=== PATIENT | male | born 1990 | race Caucasian/White ===

== ENCOUNTER 2022-05-05 12:18 | Emergency (ER) | payer SELFPAY ==
--- NOTE | ~2022-05-05 | XR_ITS ---
XR forearm LT 2V DATE: 05/05/2022 12:57 INDICATION: Lateral forearm laceration. Evaluate for foreign body TECHNIQUE: AP and lateral views COMPARISON: None FINDINGS: No fracture or dislocation, periosteal reaction or bone destruction or radiopaque soft tiss ue foreign body. No subcutaneous emphysema. IMPRESSION: Negative Reviewed, dictated and finalized at location A. IMPRESSION: Negative
[2022-05-05 12:25] VITALS: BP 167/111; PULSE 80; RESP 16; TEMP 36.8; O2SAT 100
[2022-05-05] MEDS: TETANUS,DIPHTHERIA,AC PERTUSSIS ADULT (0.5 ML) BOOSTRIX IM (12:50)
--- NOTE | 2022-05-05 13:50 | ED.WOUNDLAC ---
HPI - Wound/Laceration General Chief Complaint: Wound/Laceration Stated Complaint: cut by ceramic tile Time Seen by Provider: 05/05/22 12:32 History of Present Illness HPI narrative: Patient is a 31-year-old male who presents ER with laceration to left forearm. He was working with some tile when it popped up and cut his arm. Initially had some numbness in his left pinky that has resolved. Normal range of motion. No fevers or chills or sweats. No additional injury. Last tetanus shot was 11 years ago. Related Data Allergies Allergy/AdvReac Type Severity Reaction Status Date / Time No Known Allergies Allergy Verified 05/05/22 12:23 Review of Systems Musculoskeletal: Musculoskeletal: Denies arthralgias, Denies joint swelling and Denies muscle cramps Integumentary/Breasts: Skin/Breast: Denies erythema and Denies rash Comments: forearm laceration Neurologic: Denies focal weakness and Reports numbness PMFSH Past Medical History Medical History (Updated 05/05/22 @ 13:54 by Trae Rodriguez MD) Healthy adult male Surgical History Surgical History (Updated 05/05/22 @ 13:53 by Trae Rodriguez MD) History of surgery on arm Exam Narrative: GENERAL: Well-appearing, well-nourished, and in no acute distress. HEAD: Normocephalic, atraumatic. HEART: Regular rate and rhythm. Normal peripheral pulses. EXTREMITIES: Normal range of motion. No edema. Left hand and arm neurovascular intact. SKIN: Warm, dry, no rash. Left forearm with 1.5 cm superficial laceration without involvement of muscle. NEURO: No focal deficits. Alert and oriented x3. PSYCH: Normal mood and affect. Course Course Emergency Course: Laceration repaired. Tetanus updated. Discharge home. Vital Signs Vital signs: Vital Signs Temperature 98.3 F 05/05/22 12:25 Pulse Rate 80 05/05/22 12:25 Respiratory Rate 16 05/05/22 12:25 Blood Pressure 167/111 H 05/05/22 12:25 Pulse Oximetry 100 05/05/22 12:25 Oxygen Delivery Room Air 05/05/22 12:25 Temperature 98.3 F 05/05/22 12:25 Pulse Rate 80 05/05/22 12:25 Respiratory Rate 16 05/05/22 12:25 Blood Pressure 167/111 H 05/05/22 12:25 Pulse Oximetry 100 05/05/22 12:25 Oxygen Delivery Room Air 05/05/22 12:25 Procedures Laceration Laceration 1: Date: 05/05/22 Time: 13:40 Site: upper extremity Size (cm): 1.5 Description: linear and clean Depth: simple, single layer Local Anesthetic: lidocaine 1% and with epi Amount of anesthesia used (mL): 3 Pre-repair: irrigated extensively ====== Skin Level ====== Skin layer closed with: nylon Size (cm): 4-0 Number of sutures: 3 Technique: simple, interrupted ====== Subcutaneous Layer ====== ====== Muscle Layer ====== ====== Tendon Layer ====== MDM - Wound/Laceration Imaging Data Radiologist's impression: ITS Impressions Forearm X-Ray 05/05/22 13:10 IMPRESSION: Negative Discharge Plan Discharge Clinical Impression: Laceration Patient Disposition: Home, Self-Care Condition: Stable Instructions: Care For Your Stitches (ED), Laceration (ED) Additional Instructions: Remove your sutures in 10 days. Return the ER if the wound is red/hot/swollen, its draining pus, you have fever over 100.4 ?F. Follow-up/Referrals: PHYSICIAN NOT ON STAFF,NONSTAFF [Primary Care Provider] - 1 Week
[2022-05-05] MEDS: LIDO 1%/EPINEPHRINE 1:100,000 20 ML VIAL (14:05)
[2022-05-05 14:11] VITALS: BP 158/99; PULSE 80; RESP 16; TEMP 36.8; O2SAT 98
== END 2022-05-05 14:12 | disposition home or self-care (01) ==
PROVIDERS: Emergency Provider Emergency Medicine
DX: S51.812A Laceration without foreign body of left forearm, initial encounter (principal); W26.8XXA Contact with other sharp object(s), not elsewhere classified, initial encounter; Z23 Encounter for immunization
CPT/HCPCS: 12001; 73090; 90471; 90715; 99283